=== PATIENT | female | born 1995 ===

== ENCOUNTER 2016-11-08 00:42 | Emergency (ER) | payer OTHER ==
[2016-11-08 00:57] VITALS: BP 110/64; PULSE 83; RESP 16; TEMP 97.8; O2SAT 100
--- NOTE | 2016-11-08 01:19 | ED PDOC ---
HPI: Abdomen Time Seen by Provider: 11/08/16 00:54 Chief Complaint (Nursing): GI Problem Chief Complaint (Provider): vomiting, diarrhea, abdominal discomfort History Per: Patient History/Exam Limitations: no limitations Onset/Duration Of Symptoms: Hrs (6) Outside of [place] travel?: No Current Symptoms Are (Timing): Still Present Context: Food Location Of Pain/Discomfort: Epigastric Quality Of Discomfort: Burning Associated Symptoms: Nausea, Vomiting (approx 15 times), Diarrhea (2 times). denies: Fever, Chills, Back Pain, Chest Pain, Urinary Symptoms Exacerbating Factors: None Alleviating Factors: None Additional Complaint(s): 21 yo F w/ no significant PMHx presents to ED with complaint of abdominal discomfort associated with nausea, vomiting, and diarrhea since 6:30pm. Patient states was in usual state of health prior to eating leftover [place] food that was left outside of fridge. Patient states approx 5-10 mins after eating, patient began to have episodes of vomiting. Patient states approx 15 episodes of vomiting since onset and ED arrival. Patient also states 2 episodes of diarrhea, watery in nature. Patient complains of burning sensation from epigastric region that radiates substernally. Patient denies gross bleeding, fever, chills, vaginal symptoms, urinary symptoms, recent travel, headache, or change in vision. Abnormal Vaginal Bleeding: No Last Menstral Period: 10/10/16 Past Medical History Reviewed: Historical Data, Nursing Documentation, Vital Signs Vital Signs: Last Vital Signs Temp 97.8 F 11/08/16 00:54 Pulse 83 11/08/16 00:54 Resp 16 11/08/16 00:54 BP 110/64 11/08/16 00:54 Pulse Ox 100 11/08/16 01:32 - Family History Family History: States: Unknown Family Hx - Home Medications Home Medications: Ambulatory Orders Medication Instructions Recorded Dicyclomine [Bentyl] 20 mg PO Q12 PRN #20 tab 11/08/16 Ondansetron ODT [Zofran ODT] 4 mg PO Q6 PRN #16 odt 11/08/16 - Allergies Allergies/Adverse Reactions: Allergies Allergy/AdvReac Type Severity Reaction Status Date / Time No Known Allergies Allergy Verified 11/08/16 00:56 Review of Systems ROS Statement: Except As Marked, All Systems Reviewed And Found Negative Gastrointestinal: Positive for: Nausea, Vomiting, Abdominal Pain, Diarrhea Physical Exam - Reviewed Nursing Documentation Reviewed: Yes Vital Signs Reviewed: Yes - Physical Exam Appears: Positive for: Well, Non-toxic, No Acute Distress Head Exam: Positive for: ATRAUMATIC, NORMAL INSPECTION, NORMOCEPHALIC Skin: Positive for: Normal Color, Warm, Dry Eye Exam: Positive for: Normal appearance, EOMI ENT: Positive for: Normal ENT Inspection, Pharynx Is (wnl) Neck: Positive for: Normal, Painless ROM, Supple Cardiovascular/Chest: Positive for: Regular Rate, Rhythm Respiratory: Positive for: Normal Breath Sounds Gastrointestinal/Abdominal: Positive for: Normal Exam, Bowel Sounds, Soft, Tenderness (mild epigastric discomfort on palpation) Back: Positive for: Normal Inspection Extremity: Positive for: Normal ROM. Negative for: Tenderness Neurologic/Psych: Positive for: Alert, gallery assistant II-XII, Oriented - Laboratory Results Result Diagrams: 11/08/16 01:27 11/08/16 01:27 Urine POC: Negative Urine dip results: Positive for: Ketones, Protein - ECG O2 Sat by Pulse Oximetry: 100 Pulse Ox Interpretation: Normal - Progress ED Course And Treament: Time: 0115 Impression: 21 yo F with epigastric discomfort associated with vomiting and diarrhea after ingestion of leftover tajik food. VSS. DDx includes but not limited to gastroenteritis, , dehydration, gastritis, pancreatitis Plan: * CBC * CMP * LIPASE * NS 1L BOLUS * URINE PREG * URINALYSIS * FAMOTIDINE 20MG X 1 * ZOFRAN 4MG X 1 * REASSESS Time: 0133 Labs notable for WBC 23, vitals stable, non-toxic, Udip negative for LE/Nitrates Will obtains CT Abd/Pelvis w/ PO & IV contrast Time: 0430 IMPRESSION: Right ovarian (likely) cyst measuring 24 mm in greatest dimension. Normal appendix. Normal gallbladder. Patient seen and re-examined at bedside. Patient states improvement of symptoms. Able to tolerate PO. Will discharge patient home with follow up with PCP in 2-3 days for follow up of right ovarian cyst and leukocytosis. Discharge diagnosis : Gastroenteritis. All above discussed with patient, verbalized understanding. Disposition - Clinical Impression Clinical Impression: Gastroenteritis - Disposition Disposition: Routine/Home Disposition Time: 04:35 Condition: STABLE Additional Instructions: Folllow up with PCP in 2-3 days. Prescriptions: Dicyclomine [Bentyl] 20 mg PO Q12 PRN #20 tab PRN Reason: abdominal pain/diarrhea Ondansetron ODT [Zofran ODT] 4 mg PO Q6 PRN #16 odt PRN Reason: Nausea/Vomiting Instructions: Gastroenteritis (ED) Forms: [facility] ED School/Work Excuse
[2016-11-08 01:30] LABS: BASO % 0.2 % (0.0-2.0); HEMATOCRIT 39.7 % (34.0-47.0); LYMPH # 0.6 K/uL (1.0-4.3); LYMPH % 2.6 % (20.0-40.0); MEAN CELL VOLUME 86.1 fl (81.0-99.0); MEAN CORPUSCULAR HEMOGLOBIN 28.7 pg (27.0-31.0); MEAN CORPUSCULAR HGB CONC 33.4 g/dL (33.0-37.0); MEAN PLATELET VOLUME 7.4 fl (7.2-11.7); MONO # 1.5 K/uL (0.0-0.8); MONO % 6.3 % (0.0-10.0); NEUT # 20.9 K/uL (1.8-7.0); NEUT % 90.9 % (50.0-75.0); PLATELET COUNT 326 K/uL (130-400); RED CELL DISTRIBUTION WIDTH 13.1 % (11.5-14.5); WHITE BLOOD COUNT 23.1 K/uL (4.8-10.8)
[2016-11-08] MEDS ORDERED: Sodium Chloride 0.9% 1,000 ML IV SCH (01:30)
[2016-11-08] MEDS ORDERED: Iohexol 240 (50 ml) ONE (01:31)
[2016-11-08] MEDS ORDERED: Iohexol 240 (50 ml) PO ONE (01:33)
[2016-11-08 01:34] LABS: CHLORIDE 103 mmol/L (98-107)
[2016-11-08 01:35] LABS: POTASSIUM 4.3 MMOL/L (3.6-5.0); SODIUM 141 mmol/l (132-148)
[2016-11-08 01:37] LABS: BILIRUBIN,TOTAL 0.5 mg/dl (0.2-1.3); CARBON DIOXIDE 25 mmol/L (22-30); GFR AFRICAN-AMERICAN > 60
[2016-11-08 01:38] LABS: ALB/GLOB RATIO 1.2 (1.0-2.1); ALKALINE PHOSPHATASE 100 U/L (38-126); ALT/SGPT 18 U/L (9-52); AST/SGOT 27 U/L (14-36); BLOOD UREA NITROGEN 15 mg/dl (7-17); CALCIUM 9.6 mg/dL (8.4-10.2); GLUCOSE,RANDOM 96 mg/dL (65-105); LIPASE 158 U/L (23-300); TOTAL PROTEIN 8.8 G/DL (6.3-8.2)
[2016-11-08 01:46] LABS: URINE BACTERIA RARE (<OCC)
[2016-11-08 01:58] LABS: URINE COLOR YELLOW (YELLOW); URINE GLUCOSE (UA) NEGATIVE (Normal)
[2016-11-08 01:59] LABS: URINE BILIRUBIN SMALL (NEGATIVE); URINE BLOOD NEGATIVE (NEGATIVE); URINE KETONE 80 mg/dL (NEGATIVE)
[2016-11-08 02:00] LABS: URINE PROTEIN 30 mg/dL (NEGATIVE); URINE UROBILINOGEN 0.2 mg/dL (0.2-1.0)
[2016-11-08 02:01] LABS: RBC URINE 1 /hpf (0-3); URINE LEUKOCYTE ESTERASE NEGATIVE Leu/uL (Negative); WBC URINE 4 /hpf (0-5)
[2016-11-08 03:00] LABS: NEUTROPHIL 87 % (42-75); REACTIVE LYMPHOCYTES 1 % (0-0); TOTAL CELLS COUNTED 100
[2016-11-08] MEDS ORDERED: Iohexol 300 50 ML ONE (03:36)
[2016-11-08] MEDS ORDERED: Sodium Chloride 0.9% 50 ML IV ONE (03:37)
--- NOTE | 2016-11-08 04:14 | CT ---
EXAM: CT Abdomen and Pelvis With Intravenous Contrast CLINICAL HISTORY: 21 years old, female; Pain; Abdominal pain; Localized; Upper; Additional info: Abd pain TECHNIQUE: Axial computed tomography images of the abdomen and pelvis with intravenous contrast. This CT exam was performed using one or more of the following dose reduction techniques: automated exposure control, adjustment of the mA and/or kV according to patient size, and/or use of iterative reconstruction technique. Coronal and sagittal reformatted images were created and reviewed. CONTRAST: 90 mL of [id number] administered intravenously. COMPARISON: No relevant prior studies available. FINDINGS: Lower thorax: The bilateral lung bases are clear. ABDOMEN: Liver: No acute findings. Gallbladder and bile ducts: The gallbladder is only minimally distended, without calcified stones. No significant intra- or extrahepatic biliary ductal dilation. Pancreas: Enhances homogeneously. No ductal dilation. No discrete mass. Spleen: No acute findings. Adrenals: No acute findings. Kidneys and ureters: No acute findings. No hydronephrosis or renal calculi. No discrete solid mass. PELVIS: Bladder: No acute findings. Reproductive: A 24 mm focus of decreased attenuation is identified within the right hemipelvis, presumably a right ovarian cyst. Free fluid is also identified within the pelvis, within the posterior cul-de-sac. Appendix: The air and contrast filled appendix is of normal caliber (series 3, image 114; series 601, image 40) . ABDOMEN and PELVIS: Stomach and bowel: Oral contrast extends to the level of the colon, without obstruction. No mucosal thickening. Peritoneum: No significant fluid collection. No free air. Lymph nodes: No pathologically enlarged lymph nodes. Vasculature: Unremarkable. Bones: No acute fracture. IMPRESSION: Right ovarian (likely) cyst measuring 24 mm in greatest dimension. Normal appendix. Normal gallbladder.
== END 2016-11-08 04:42 | disposition home or self-care (01) ==
LOC: H.ER 00:42 → MERGE 00:42 → H.ER 04:42
DX: K52.9 Noninfective gastroenteritis and colitis, unspecified (principal); R19.7 Diarrhea, unspecified; R11.10 Vomiting, unspecified; R10.9 Unspecified abdominal pain; N83.201 Unspecified ovarian cyst, right side; D72.829 Elevated white blood cell count, unspecified

== ENCOUNTER 2016-11-21 08:04 | Emergency (ER) | payer OTHER ==
[2016-11-21 08:09] VITALS: BP 95/63; PULSE 87; RESP 16; TEMP 98.1; O2SAT 100
[2016-11-21 08:11] VITALS: BMI 23.2
[2016-11-21] MEDS ORDERED: Atrop/Hyos/Scop/PhenoB Elixir PO STA (09:09)
[2016-11-21] MEDS ORDERED: Alum-Mag Hydrox-Simethicone Susp (30 mL) PO STA (09:09)
[2016-11-21] MEDS ORDERED: Sodium Chloride 0.9% 1,000 ML IV STA (09:09)
--- NOTE | 2016-11-21 09:16 | ED PDOC ---
HPI: Abdomen Time Seen by Provider: 11/21/16 08:37 Chief Complaint (Nursing): Abdominal Pain Chief Complaint (Provider): Abdominal pain History Per: Patient History/Exam Limitations: no limitations Onset/Duration Of Symptoms: Days (2) Outside of [place] travel?: No Location Of Pain/Discomfort: Epigastric Quality Of Discomfort: Sharp Associated Symptoms: denies: Fever, Chills, Nausea, Vomiting, Diarrhea, Loss Of Appetite, Back Pain, Chest Pain, Constipation, Urinary Symptoms Exacerbating Factors: None Alleviating Factors: None Additional Complaint(s): Pt reports sharp epigastric pain X 2 days, constant, not relieved with Bentyl at home. Pt evaluated in this ED couple weeks ago, WBC high and CT abd/pelvis normal, sent home with Rx Bentyl. Denies fever, nausea, vomiting, constipation , diarrhea, dysuria, hematuria, no alleviating/precipitating factors. Abnormal Vaginal Bleeding: No Past Medical History Reviewed: Nursing Documentation, Vital Signs Vital Signs: Last Vital Signs Temp 98.1 F 11/21/16 08:08 Pulse 87 11/21/16 08:08 Resp 16 11/21/16 08:08 BP 95/63 L 11/21/16 08:08 Pulse Ox 100 11/21/16 09:17 - Medical History PMH: No Chronic Diseases - Surgical History Surgical History: No Surg Hx - Family History Family History: States: Unknown Family Hx - Social History Current smoker - smoking cessation education provided: No Alcohol: None - Immunization History Hx Tetanus Toxoid Vaccination: No Hx Influenza Vaccination: No Hx Pneumococcal Vaccination: No - Home Medications Home Medications: Ambulatory Orders Medication Instructions Recorded Azithromycin [Zithromax] 250 mg PO DAILY #4 cap 06/29/14 Ibuprofen 600 mg PO Q8 #30 tab 06/29/14 Dicyclomine [Bentyl] 20 mg PO Q12 PRN #20 tab 11/08/16 Ondansetron ODT [Zofran ODT] 4 mg PO Q6 PRN #16 odt 11/08/16 Famotidine [Pepcid] 20 mg PO BID #20 tab 11/21/16 - Allergies Allergies/Adverse Reactions: Allergies Allergy/AdvReac Type Severity Reaction Status Date / Time No Known Allergies Allergy Verified 11/21/16 08:14 Review of Systems Constitutional: Negative for: Fever, Chills Cardiovascular: Negative for: Chest Pain, Palpitations Respiratory: Negative for: Cough, Shortness of Breath Gastrointestinal: Positive for: Abdominal Pain. Negative for: Nausea, Vomiting , Diarrhea, Constipation, Melena, Hematochezia, Hematemesis Genitourinary Female: Negative for: Dysuria, Hematuria Musculoskeletal: Negative for: Back Pain Physical Exam - Reviewed Nursing Documentation Reviewed: Yes Vital Signs Reviewed: Yes - Physical Exam Appears: Positive for: In Acute Distress (Mild painful) Skin: Positive for: Normal Color, Warm, Dry Cardiovascular/Chest: Positive for: Regular Rate, Rhythm Respiratory: Positive for: Normal Breath Sounds Gastrointestinal/Abdominal: Positive for: Bowel Sounds (WNL), Soft, Tenderness ( Epigastric). Negative for: Mass, Distended, Guarding, Rebound Back: Positive for: Normal Inspection. Negative for: L CVA Tenderness, R CVA Tenderness Neurologic/Psych: Positive for: Alert, Oriented - Laboratory Results Result Diagrams: 11/21/16 09:21 11/21/16 09:21 - ECG O2 Sat by Pulse Oximetry: 100 - CT Scan/US RUQ ultrasound Other Rad Studies (CT/US): Radiology Report Reviewed (Unremarkable abdominal sonogram.) - Progress Re-evaluation Time: 12:07 Condition: Improved Medical Decision Making Medical Decision Makin yo with epigastric pain. - labs - RUQ ultrasound - GI cocktail - IVF Disposition - Clinical Impression Clinical Impression: Gastritis - Patient ED Disposition Is Patient to be Admitted: No - Disposition Referrals: Jude Quijano MD [Staff Provider] - Disposition: Routine/Home Disposition Time: 12:15 Condition: IMPROVED Prescriptions: Famotidine [Pepcid] 20 mg PO BID #20 tab Instructions: Gastritis (ED)
[2016-11-21] MEDS ORDERED: Alum-Mag Hydrox-Simethicone Susp (30 mL) ONE (09:22)
[2016-11-21 09:34] LABS: BASO # 0.1 K/uL (0.0-0.2); BASO % 0.6 % (0.0-2.0); EOS # 0.1 K/uL (0.0-0.7); EOS % 1.4 % (0.0-4.0); HEMATOCRIT 36.3 % (34.0-47.0); LYMPH # 2.6 K/uL (1.0-4.3); LYMPH % 31.2 % (20.0-40.0); MEAN CELL VOLUME 86.2 fl (81.0-99.0); MEAN CORPUSCULAR HEMOGLOBIN 29.3 pg (27.0-31.0); MEAN PLATELET VOLUME 7.9 fl (7.2-11.7); MONO # 0.7 K/uL (0.0-0.8); MONO % 8.5 % (0.0-10.0); NEUT # 4.9 K/uL (1.8-7.0); NEUT % 58.3 % (50.0-75.0); RED CELL DISTRIBUTION WIDTH 12.6 % (11.5-14.5); WHITE BLOOD COUNT 8.4 K/uL (4.8-10.8)
[2016-11-21 09:39] LABS: ALB/GLOB RATIO 1.1 (1.0-2.1); ALKALINE PHOSPHATASE 74 U/L (38-126); ALT/SGPT 24 U/L (9-52); AST/SGOT 40 U/L (14-36); BILIRUBIN,TOTAL 0.6 mg/dl (0.2-1.3); BLOOD UREA NITROGEN 12 mg/dl (7-17); CALCIUM 9.7 mg/dL (8.4-10.2); CARBON DIOXIDE 22 mmol/L (22-30); CHLORIDE 105 mmol/L (98-107); GFR AFRICAN-AMERICAN > 60; GLUCOSE,RANDOM 86 mg/dL (65-105); LIPASE 249 U/L (23-300); POTASSIUM 4.2 MMOL/L (3.6-5.0); SODIUM 138 mmol/l (132-148); TOTAL PROTEIN 7.6 G/DL (6.3-8.2)
[2016-11-21 09:44] LABS: RBC URINE 2 /hpf (0-3); URINE BACTERIA RARE (<OCC); URINE BILIRUBIN NEGATIVE (NEGATIVE); URINE BLOOD NEGATIVE (NEGATIVE); URINE COLOR YELLOW (YELLOW); URINE GLUCOSE (UA) NEG (Normal); URINE KETONE NEGATIVE (NEGATIVE); URINE LEUKOCYTE ESTERASE MOD Leu/uL (Negative); URINE PROTEIN NEGATIVE (NEGATIVE); URINE UROBILINOGEN 0.2-1.0 mg/dL (0.2-1.0); WBC URINE 11 /hpf (0-5)
--- NOTE | 2016-11-21 11:14 | US ---
HISTORY: Epigastric pain COMPARISON: None. TECHNIQUE: Sonographic evaluation of the abdomen. FINDINGS: LIVER: Measures cm. Normal echogenicity of the liver parenchyma. No mass. No intrahepatic bile duct dilatation. GALLBLADDER: Unremarkable. No gallstones. COMMON BILE DUCT: Measures mm. No stones. No dilatation. PANCREAS: Unremarkable as visualized. No mass. No ductal dilatation. RIGHT KIDNEY: Measures cm. Normal echogenicity. No calculus, mass, or hydronephrosis. LEFT KIDNEY: Measures cm. Normal echogenicity. No calculus, mass, or hydronephrosis. SPLEEN: Normal in size and contour. No mass. AORTA: No aneurysmal dilatation. IVC: Unremarkable. OTHER FINDINGS: None. IMPRESSION: Unremarkable abdominal sonogram.
== END 2016-11-21 12:33 | disposition home or self-care (01) ==
LOC: H.ER 08:04
DX: K29.70 Gastritis, unspecified, without bleeding (principal); R10.13 Epigastric pain